=== PATIENT | female | born 1975 | race Asian ===

== ENCOUNTER → 2023-06-26 10:15 | Outpatient (REF) | payer BC, SELFPAY | LOC: WDC 10:15 | PROVIDERS: ATTENDING PHYSICIAN Family Medicine | DX: Z12.31 Encounter for screening mammogram for malignant neoplasm of breast (principal) | CPT/HCPCS: 77063; 77067 ==

== ENCOUNTER → 2023-06-26 10:55 | Outpatient (REF) | payer BC, SELFPAY ==
[2023-06-26 12:23] LABS: % Basophils 0.7 % (0-2); % Eosinophils 2.1 % (0-6); % Immature Granulocytes 0.5 % (0-0.5); % Lymphocytes 32.5 % (20.5-51.1); % Monocytes 5.3 % (1.7-9.3); % Neutrophils 58.9 % (42.2-75.2); Absolute Eosinophils 0.1 10^3/uL (0-0.7); Absolute Lymphocytes 1.8 10^3/uL (1.2-3.4); Absolute Monocytes 0.3 10^3/uL (0.1-0.6); Absolute Neutrophils 3.3 10^3/uL (1.4-6.5); Hematocrit 34.4 % (37.0-47.0); Hemoglobin 11.7 g/dL (12.0-16.0); Mean Corpuscular Hgb 28.9 pg (27.0-31.0); Mean Corpuscular Volume 84.9 fL (81.0-99.0); Mean Platelet Volume 9.5 fL (7.4-10.4); Nucleated Red Blood Cells % 0 %; Platelet Count 362 10^3/uL (130-400); Red Blood Cell Count 4.05 10^6/uL (4.20-5.40); White Blood Cell Count 5.7 10^3/uL (4.8-10.8)
[2023-06-26 12:56] LABS: ALT (SGPT) 58 U/L (0-35); AST (SGOT) 46 U/L (14-36); Albumin 4.8 g/dl (3.5-5.0); Alkaline Phosphatase 45 U/L (38-126); Blood Urea Nitrogen 17 mg/dl (7-17); Calcium 9.5 mg/dl (8.4-10.2); Carbon Dioxide 25 mmol/L (22-30); Chloride 101 mmol/L (98-107); Glucose 93 mg/dl (70-99); HDL Cholesterol 57 mg/dl; LDL Cholesterol, Calculated 109 mg/dl; Potassium 3.9 mmol/L (3.5-5.1); Sodium 138 mmol/L (135-145); Total Bilirubin 0.7 mg/dl (0.2-1.3); Total Cholesterol 200 mg/dl (50-199); Total Protein 7.4 g/dl (6.3-8.2); Triglyceride 172 mg/dl (10-149); Very Low Density Lipoprotein 34 mg/dl (0-30); eGFR > 60.00
[2023-06-26 13:23] LABS: TSH Reflex To Free T4 1.35 uIU/ml (0.47-4.68)
== END ==
LOC: REG 10:55
PROVIDERS: ATTENDING PHYSICIAN Family Medicine
DX: Z00.00 Encounter for general adult medical examination without abnormal findings (principal)
CPT/HCPCS: 36415; 80053; 80061; 84443; 85025

== ENCOUNTER → 2023-06-30 08:52 | Outpatient (REF) | payer BC, SELFPAY ==
[2023-07-02 17:51] LABS: Quantiferon Mitogen minus NIL >10.00 IU/mL; Quantiferon NIL 0.02 IU/mL; Quantiferon TB Gold Plus Negative (Negative)
== END ==
LOC: REG 08:52
PROVIDERS: ATTENDING PHYSICIAN Family Medicine
DX: Z11.1 Encounter for screening for respiratory tuberculosis (principal)
CPT/HCPCS: 36415; 86480

== ENCOUNTER → 2023-08-03 10:26 | Outpatient (REF) | payer BC, SELFPAY | LOC: RAD 10:26 | PROVIDERS: ATTENDING PHYSICIAN Family Medicine | DX: E78.1 Pure hyperglyceridemia (principal); R79.89 Other specified abnormal findings of blood chemistry | CPT/HCPCS: 76700 ==

== ENCOUNTER → 2024-06-24 08:45 | Outpatient (REF) | payer BC, SELFPAY ==
[2024-06-24 09:55] LABS: ALT (SGPT) 77 U/L (0-35); AST (SGOT) 57 U/L (14-36); Albumin 4.5 g/dl (3.5-5.0); Alkaline Phosphatase 44 U/L (38-126); Blood Urea Nitrogen 14 mg/dl (7-17); Calcium 9.9 mg/dl (8.4-10.2); Carbon Dioxide 24 mmol/L (22-30); Chloride 105 mmol/L (98-107); Glucose 108 mg/dl (70-99); HDL Cholesterol 61 mg/dl; LDL Cholesterol, Calculated 119 mg/dl; Potassium 4.5 mmol/L (3.5-5.1); Sodium 138 mmol/L (135-145); Total Bilirubin 0.6 mg/dl (0.2-1.3); Total Cholesterol 214 mg/dl (50-199); Total Protein 7.2 g/dl (6.3-8.2); Triglyceride 170 mg/dl (10-149); Very Low Density Lipoprotein 34 mg/dl (0-30); eGFR > 60.00
[2024-06-24 10:00] LABS: % Basophils 0.9 % (0-2); % Eosinophils 1.9 % (0-6); % Immature Granulocytes 1.3 % (0-0.5); % Lymphocytes 32.6 % (20.5-51.1); % Monocytes 5.6 % (1.7-9.3); % Neutrophils 57.7 % (42.2-75.2); Absolute Basophils 0.1 10^3/uL (0-0.2); Absolute Eosinophils 0.1 10^3/uL (0-0.7); Absolute Immature Granulocytes 0.1 10^3/uL (0-0.05); Absolute Lymphocytes 1.7 10^3/uL (1.2-3.4); Absolute Monocytes 0.3 10^3/uL (0.1-0.6); Absolute Neutrophils 3.1 10^3/uL (1.4-6.5); Hematocrit 37.8 % (37.0-47.0); Hemoglobin 12.7 g/dL (12.0-16.0); Mean Corp Hgb Conc. 33.6 g/dL (33.0-37.0); Mean Corpuscular Hgb 28.7 pg (27.0-31.0); Mean Corpuscular Volume 85.3 fL (81.0-99.0); Mean Platelet Volume 9.5 fL (7.4-10.4); Nucleated Red Blood Cells % 0 %; Platelet Count 368 10^3/uL (130-400); Red Blood Cell Count 4.43 10^6/uL (4.20-5.40); White Blood Cell Count 5.3 10^3/uL (4.8-10.8)
[2024-06-24 10:24] LABS: TSH Reflex To Free T4 1.69 uIU/ml (0.47-4.68)
== END ==
LOC: REG 08:45
PROVIDERS: ATTENDING PHYSICIAN Family Medicine
DX: Z00.00 Encounter for general adult medical examination without abnormal findings (principal)
CPT/HCPCS: 36415; 80053; 80061; 84443; 85025

== ENCOUNTER → 2024-08-08 08:27 | Outpatient (REF) | payer BC, SELFPAY | LOC: WDC 08:27 | PROVIDERS: ATTENDING PHYSICIAN Family Medicine | DX: Z12.31 Encounter for screening mammogram for malignant neoplasm of breast (principal) | CPT/HCPCS: 77063; 77067 ==